=== PATIENT | male | born 1960 | race Caucasian/White ===

== ENCOUNTER 2017-08-28 12:47 | Day surgery (SDC) | payer OTHER ==
[2017-08-28] MEDS ORDERED: LIDOCAINE 2% (SDV) 5 ML INJ (16:21)
[2017-08-28] MEDS ORDERED: PROPOFOL 40 ML (16:21)
== END 2017-08-28 17:57 | disposition home or self-care (01) ==
LOC: GIL 12:47
DX: Z12.11 Encounter for screening for malignant neoplasm of colon (principal); K64.1 Second degree hemorrhoids; K57.30 Diverticulosis of large intestine without perforation or abscess without bleeding; E78.5 Hyperlipidemia, unspecified; I10 Essential (primary) hypertension
CPT/HCPCS: 45378

== ENCOUNTER 2017-09-23 09:04 | Day surgery (SDC) | payer OTHER ==
[~2017-09-23 09:04] MED LIST: CEFAZOLIN 1 GM INJ; CEFAZOLIN 2 GM/50 ML (PMX) 50 ML IVPB; SOD CHLORIDE 0.9% 1,000 ML IV
[2017-09-23] MEDS ORDERED: SOD CHLORIDE 0.9% 1,000 ML IV (10:00)
[2017-09-23] MEDS ORDERED: LACTATED RINGER'S 1,000 ML IV (10:30)
[2017-09-23] MEDS ORDERED: GLYCOPYRROLATE 0.4 MG INJ ×2 (12:34→13:01)
[2017-09-23] MEDS ORDERED: CEFAZOLIN 1 GM INJ ×3 (12:34→13:02)
[2017-09-23] MEDS ORDERED: ROCURONIUM 50 MG INJ ×3 (12:34→13:02)
[2017-09-23] MEDS ORDERED: NEOSTIGMINE 3 MG/3 ML SYRINGE ×3 (12:34→13:02)
[2017-09-23] MEDS ORDERED: PROPOFOL 0 ML ×2 (12:34→13:01)
[2017-09-23] MEDS ORDERED: ROPIVACAINE 0.2% 20 ML VIAL (12:35)
[2017-09-23] MEDS ORDERED: ONDANSETRON 4 MG INJ (12:35)
[2017-09-23] MEDS ORDERED: FENTAnyl 50 MCG/ML VIAL (12:35)
[2017-09-23] MEDS ORDERED: DEXAMETHASONE 4 MG/ML 1 ML INJ (12:35)
[2017-09-23] MEDS ORDERED: MIDAZOLAM 1 MG/ML 2 ML INJ (12:35)
[2017-09-23] MEDS ORDERED: PROPOFOL 20 ML (13:02)
[2017-09-23] MEDS: CEFAZOLIN 2 GM/50 ML (PMX) 50 ML IVPB (13:10)
[2017-09-23] MEDS ORDERED: BUPIVACAINE 0.5% (SDV) 30 ML INJ (13:39)
[2017-09-23] MEDS: POLYMYXIN/BACITRACIN 1L IRRIG IRR (13:43)
[2017-09-23] MEDS ORDERED: SUGAMMADEX SODIUM 200 MG/2 ML VIAL IV (14:05)
[2017-09-23] MEDS: BUPIVACAINE 0.25% (MPF) 30 ML INJ (14:23)
[2017-09-23] MEDS: FENTAnyl 50 MCG/ML VIAL IV ×4 (14:51→15:12)
[2017-09-23] MEDS: HYDROmorphONE 1 MG/5 ML IV SYRINGE IV ×3 (14:52→15:14)
[2017-09-23] MEDS: MEPERIDINE 25 MG INJ IV (14:52)
[2017-09-23] MEDS ORDERED: hydrALAzine 20 MG INJ IV (15:00)
[2017-09-23] MEDS ORDERED: HYDROmorphONE 1 MG/5 ML IV SYRINGE IV (15:00)
[2017-09-23] MEDS ORDERED: TRIMETHOBENZAMIDE 100 MG/ML VIAL IM (15:00)
[2017-09-23] MEDS ORDERED: ALBUTEROL 0.083% (NEB) 2.5 MG/3 ML AMP HHN (15:00)
[2017-09-23] MEDS ORDERED: FENTAnyl 50 MCG/ML VIAL IV ×2 (15:00)
[2017-09-23] MEDS ORDERED: DIPHENHYDRAMINE 50 MG INJ IV (15:00)
[2017-09-23] MEDS ORDERED: ONDANSETRON 4 MG INJ IV (15:00)
[2017-09-23] MEDS ORDERED: OXYCODONE/ACETAMINOPHEN (5/325) TAB PO ×2 (15:00)
[2017-09-23] MEDS ORDERED: IPRATROPIUM (NEB) 0.5 MG/2.5 ML AMP HHN (15:00)
[2017-09-23] MEDS ORDERED: EPHEDrine SULFATE 50 MG/5 ML SYG IV (15:00)
[2017-09-23] MEDS ORDERED: MIDAZOLAM 1 MG/ML 2 ML INJ IV (15:00)
[2017-09-23] MEDS ORDERED: LABETALOL HCL 20MG INJ IV (15:00)
[2017-09-23] MEDS: HYDROCODONE/APAP (5/325) TAB PO (15:19)
== END 2017-09-23 16:15 | disposition home or self-care (01) ==
LOC: SDS 09:04
DX: K40.30 Unilateral inguinal hernia, with obstruction, without gangrene, not specified as recurrent (principal); I10 Essential (primary) hypertension
CPT/HCPCS: 49507